=== PATIENT | female | born 2000 | race Caucasian/White ===

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

== ENCOUNTER 2019-08-29 00:57 | Emergency (ER) | payer OTHER ==
[~2019-08-29] VITALS: Ht 154.9 cm; Wt 49.0 kg
[2019-08-29] MEDS ORDERED: ZITHROMAX500 MG PO (05:49)
[2019-08-29] MEDS ORDERED: ZYNCOF 20-400120 ML PO (05:49)
== END 2019-08-29 05:55 | disposition home or self-care (01) ==
LOC: ER 00:57
DX: R50.9 Fever, unspecified (principal); B96.0 Mycoplasma pneumoniae [M. pneumoniae] as the cause of diseases classified elsewhere

== ENCOUNTER 2019-09-04 18:55 | Emergency (ER) | payer OTHER ==
[~2019-09-04] VITALS: Ht 154.9 cm; Wt 54.0 kg
[~2019-09-04 18:55] MED LIST changes: +ZITHROMAX500 MG PO; +ZYNCOF 20-400120 ML PO
== END 2019-09-04 21:32 | disposition home or self-care (01) ==
LOC: ER 18:55
DX: O20.0 Threatened abortion (principal)

== ENCOUNTER 2019-12-16 18:36 | Emergency (ER) | payer OTHER ==
[~2019-12-16] VITALS: Ht 154.9 cm; Wt 55.8 kg
[2019-12-16] MEDS ORDERED: LEVOTHYROXINE25 MCG PO (18:41)
== END 2019-12-16 23:31 | disposition home or self-care (01) ==
LOC: ER 18:36
DX: N39.0 Urinary tract infection, site not specified (principal)

== ENCOUNTER 2019-12-26 00:57 | Emergency (ER) | payer OTHER ==
[~2019-12-26] VITALS: Ht 154.9 cm; Wt 59.0 kg
[~2019-12-26 00:57] MED LIST changes: +LEVOTHYROXINE25 MCG PO
== END 2019-12-26 04:55 | disposition home or self-care (01) ==
LOC: ER 00:57
DX: O26.892 Other specified pregnancy related conditions, second trimester (principal); R10.2 Pelvic and perineal pain; Z3A.16 16 weeks gestation of pregnancy

== ENCOUNTER 2020-01-05 01:04 | Emergency (ER) | payer OTHER ==
[~2020-01-05] VITALS: Ht 154.9 cm; Wt 58.1 kg
== END 2020-01-05 07:23 | disposition home or self-care (01) ==
LOC: ER 01:04
DX: O26.892 Other specified pregnancy related conditions, second trimester (principal); R10.2 Pelvic and perineal pain; Z34.02 Encounter for supervision of normal first pregnancy, second trimester

== ENCOUNTER 2020-01-10 23:18 | Emergency (ER) | payer OTHER ==
[~2020-01-10] VITALS: Ht 154.9 cm; Wt 58.5 kg
== END 2020-01-11 06:24 | disposition home or self-care (01) ==
LOC: ER 23:18
DX: O26.852 Spotting complicating pregnancy, second trimester (principal); Z3A.18 18 weeks gestation of pregnancy

== ENCOUNTER → 2020-01-19 | Emergency (ER) | payer OTHER ==
[~2020-01-19] VITALS: Ht 157.5 cm; Wt 59.9 kg
[~2020-01-19] MED LIST changes: +PRENATABS RX T1 EACH
== END | disposition home or self-care (01) ==
LOC: ER 03:33
DX: O26.892 Other specified pregnancy related conditions, second trimester (principal); R10.2 Pelvic and perineal pain; Z34.02 Encounter for supervision of normal first pregnancy, second trimester

== ENCOUNTER 2020-02-10 23:51 | Outpatient (CLI) | payer OTHER | END 2020-02-11 12:05 | disposition home or self-care (01) | LOC: OBS/DEL 23:51 | PROVIDERS: ATTEND Specialist | DX: O26.892 Other specified pregnancy related conditions, second trimester (principal); R10.2 Pelvic and perineal pain; K59.09 Other constipation ==

== ENCOUNTER 2020-03-07 00:19 | Inpatient (IN) | payer OTHER ==
[~2020-03-07] VITALS: Ht 154.9 cm; Wt 62.6 kg
== END 2020-04-15 14:42 | disposition home or self-care (01) | DRG 832 ==
LOC: OBS/DEL 00:19 → SURG-SUITE 02:48 → LDR 02:48 → SURG-SUITE 03-08 11:53 → OB/GYN 03-10 11:24
PROVIDERS: ADMIT Specialist; ATTEND Specialist
PROC: 4A1HXFZ Monitoring of Products of Conception, Cardiac Rhythm, External Approach (ICD-10-PCS; principal; 2020-03-07)
PROC: BY4CZZZ Ultrasonography of Second Trimester, Single Fetus (ICD-10-PCS; 2020-03-07)
PROC: BT43ZZZ Ultrasonography of Bilateral Kidneys (ICD-10-PCS; 2020-03-07)
PROC: BY4CZZZ Ultrasonography of Second Trimester, Single Fetus (ICD-10-PCS; 2020-03-07)
DX: O60.02 Preterm labor without delivery, second trimester (principal); O26.872 Cervical shortening, second trimester; Z3A.26 26 weeks gestation of pregnancy; Z20.828 Contact with and (suspected) exposure to other viral communicable diseases
CPT/HCPCS: 240

== ENCOUNTER → 2020-05-09 | Outpatient (CLI) | payer OTHER | END | disposition home or self-care (01) | LOC: PRENATAL 15:00 | PROVIDERS: ATTEND Obstetrics & Gynecology Maternal & Fetal Medicine | DX: O26.843 Uterine size-date discrepancy, third trimester (principal); O36.8131 Decreased fetal movements, third trimester, fetus 1; Z36.89 Encounter for other specified antenatal screening; Z3A.34 34 weeks gestation of pregnancy ==

== ENCOUNTER 2020-05-30 14:58 | Inpatient (IN) | payer OTHER ==
[~2020-05-30] VITALS: Ht 154.9 cm; Wt 67.6 kg
== END 2020-06-01 14:00 | disposition home or self-care (01) | DRG 807 ==
LOC: LDR 14:58 → OB/GYN 14:58
PROVIDERS: ADMIT Specialist; ATTEND Specialist
PROC: 10E0XZZ Delivery of Products of Conception, External Approach (ICD-10-PCS; principal; 2020-05-30)
PROC: 4A1HXFZ Monitoring of Products of Conception, Cardiac Rhythm, External Approach (ICD-10-PCS; 2020-05-30)
DX: O60.14X0 Preterm labor third trimester with preterm delivery third trimester, not applicable or unspecified (principal); Z37.0 Single live birth; O99.824 Streptococcus B carrier state complicating childbirth; Z3A.38 38 weeks gestation of pregnancy

== ENCOUNTER 2021-05-08 19:31 | Emergency (ER) | payer OTHER ==
[~2021-05-08] VITALS: Ht 154.9 cm; Wt 68.9 kg
[2021-05-08] MEDS ORDERED: PEPCID AC20 MG PO (21:59)
== END 2021-05-08 22:03 | disposition home or self-care (01) ==
LOC: ER 19:31
DX: K29.60 Other gastritis without bleeding (principal)

== ENCOUNTER 2022-05-09 01:44 | Emergency (ER) | payer OTHER ==
[~2022-05-09] VITALS: Ht 154.9 cm; Wt 69.4 kg
[~2022-05-09 01:44] MED LIST changes: +PEPCID AC20 MG PO
[2022-05-09] MEDS ORDERED: KETO10TA2 PO (04:58)
[2022-05-09] MEDS ORDERED: CEPHALEXIN500 MG PO (04:58)
== END 2022-05-09 05:05 ==
LOC: ER 01:44
DX: N93.8 Other specified abnormal uterine and vaginal bleeding (principal)

== ENCOUNTER 2022-08-23 21:47 | Emergency (ER) | payer OTHER ==
[~2022-08-23] VITALS: Ht 154.9 cm; Wt 59.0 kg
[~2022-08-23 21:47] MED LIST changes: +CEPHALEXIN500 MG PO; +KETO10TA2 PO
== END 2022-08-24 00:50 | disposition home or self-care (01) ==
LOC: ER 21:47 → EMR PED 21:48 → ER 21:48
DX: A08.4 Viral intestinal infection, unspecified (principal)

== ENCOUNTER 2023-03-30 17:51 | Emergency (ER) | payer OTHER ==
[~2023-03-30] VITALS: Ht 154.9 cm; Wt 64.9 kg
[2023-03-30 18:30] LABS: HEMATOCRIT 40.5 % (36.0-45.00); HEMOGLOBIN 13.8 g/dL (12.0-15.00); MEAN CELL VOLUME 88.6 fL (80.00-100.00); MEAN CORPUSCULAR HEMOGLOBIN 30.1 pg (27.00-32.0); PLATELET COUNT 206 K/uL (150-450); RED BLOOD COUNT 4.57 M/uL (4.00-6.00); RED CELL DISTRIBUTION WIDTH 13.6 % (11.5-14.5)
[2023-03-30] MEDS ORDERED: MEDROLPACK PO (19:24)
[2023-03-30] MEDS ORDERED: ALLEGRA ALLERG180 MG PO (19:24)
== END 2023-03-30 19:37 | disposition home or self-care (01) ==
LOC: ER 17:51
PROVIDERS: General Practice
DX: R21 Rash and other nonspecific skin eruption (principal); Z20.822 Contact with and (suspected) exposure to COVID-19

== ENCOUNTER → 2023-04-29 | Emergency (ER) | payer OTHER ==
[~2023-04-29] VITALS: Ht 154.9 cm; Wt 72.6 kg
[~2023-04-29] MED LIST changes: +ALLEGRA ALLERG180 MG PO; +MEDROLPACK PO
== END | disposition home or self-care (01) ==
LOC: ER 17:11
DX: J10.1 Influenza due to other identified influenza virus with other respiratory manifestations (principal); Z20.822 Contact with and (suspected) exposure to COVID-19; Z91.013 Allergy to seafood; Z91.018 Allergy to other foods

== ENCOUNTER 2023-09-09 23:07 | Emergency (ER) | payer OTHER ==
[~2023-09-09] VITALS: Ht 154.9 cm; Wt 67.6 kg
== END 2023-09-10 | disposition left against medical advice (07) ==
LOC: ER 23:07
DX: Z53.21 Procedure and treatment not carried out due to patient leaving prior to being seen by health care provider (principal)

== ENCOUNTER 2024-01-11 17:10 | Emergency (ER) | payer OTHER ==
[~2024-01-11] VITALS: Ht 154.9 cm; Wt 69.4 kg
[~2024-01-11 17:10] MED LIST changes: +MACRODANTIN100 M1 PO; +PRENATA CHEWAB1 EACH PO
[2024-01-11 18:33] LABS: HEMATOCRIT 34.7 % (36.0-45.00); HEMOGLOBIN 12.3 g/dL (12.0-15.00); MEAN CELL VOLUME 89.2 fL (80.00-100.00); MEAN CORPUSCULAR HEMOGLOBIN 31.6 pg (27.00-32.0); MEAN CORPUSCULAR HGB CONC 35.5 g/dl (32.0-36.0); PLATELET COUNT 175 K/uL (150-450); RED BLOOD COUNT 3.89 M/uL (4.00-6.00); RED CELL DISTRIBUTION WIDTH 14.6 % (11.5-14.5)
[2024-01-11 19:16] LABS: CALCIUM 8.5 mg/dL (8.5-10.1); CREATININE SERUM 0.78 mg/dL (0.55-1.02); GFR 89.99; POTASSIUM 3.55 mEq/L (3.5-5.1)
[2024-01-11 20:15] LABS: PH,URINE 5.5 (5.0-8.0); URINE APPEARANCE Cloudy; URINE BILIRRUBIN Negative (NEGATIVE); URINE BLOOD Negative; URINE COLOR Yellow; URINE GLUCOSE Negative (NEGATIVE); URINE LEUKOCYTE Moderate; URINE NITRATE Negative; URINE PROTEIN Negative (NEGATIVE)
[2024-01-11 20:18] LABS: URINE BACTERIA 3777.3 uL (0.0-1933); URINE EPITHELIAL CELLS 49.6 uL (0.0-38.8); URINE RBC 13.5 uL (0.0-20.8); URINE WBC 128.4 uL (0.0-23.2)
== END 2024-01-11 21:56 | disposition home or self-care (01) ==
LOC: ER 17:11
PROVIDERS: General Practice
DX: N39.0 Urinary tract infection, site not specified (principal); R10.2 Pelvic and perineal pain; Z91.013 Allergy to seafood; Z91.018 Allergy to other foods

== ENCOUNTER 2024-01-17 09:46 | Emergency (ER) | payer OTHER ==
[~2024-01-17] VITALS: Ht 154.9 cm; Wt 69.4 kg
[2024-01-17 10:17] LABS: HEMATOCRIT 35.4 % (36.0-45.00); HEMOGLOBIN 12.2 g/dL (12.0-15.00); MEAN CELL VOLUME 90.4 fL (80.00-100.00); MEAN CORPUSCULAR HEMOGLOBIN 31.2 pg (27.00-32.0); MEAN CORPUSCULAR HGB CONC 34.5 g/dl (32.0-36.0); PLATELET COUNT 166 K/uL (150-450); RED BLOOD COUNT 3.92 M/uL (4.00-6.00); RED CELL DISTRIBUTION WIDTH 14.7 % (11.5-14.5)
[2024-01-17 10:45] LABS: INR 0.98; PARTIAL THROMBOPLASTIN TIME 27.6 SECONDS (22.0-34.0); PROTHROMBIN TIME 10.3 SECONDS (9.0-11.5)
[2024-01-17 11:11] LABS: CALCIUM 8.9 mg/dL (8.5-10.1); CREATININE SERUM 0.5 mg/dL (0.55-1.02); GFR 150.33; POTASSIUM 3.81 mEq/L (3.5-5.1)
[2024-01-17 13:48] LABS: URINE APPEARANCE Clear; URINE BILIRRUBIN Negative (NEGATIVE); URINE BLOOD Negative; URINE COLOR Yellow; URINE GLUCOSE Negative (NEGATIVE); URINE LEUKOCYTE Moderate; URINE NITRATE Negative; URINE PROTEIN Negative (NEGATIVE); URINE UROBILINOGEN 0.2 E.U./dl
[2024-01-17 13:52] LABS: URINE RBC 32.3 uL (0.0-20.8); URINE WBC 17.9 uL (0.0-23.2)
== END 2024-01-17 14:21 | disposition home or self-care (01) ==
LOC: ER 09:48
PROVIDERS: General Practice
DX: O20.9 Hemorrhage in early pregnancy, unspecified (principal); Z3A.15 15 weeks gestation of pregnancy; Z91.018 Allergy to other foods; Z91.013 Allergy to seafood; R10.9 Unspecified abdominal pain

== ENCOUNTER 2024-02-06 19:11 | Emergency (ER) | payer OTHER ==
[~2024-02-06] VITALS: Ht 162.6 cm; Wt 68.0 kg
[2024-02-06 19:43] LABS: HEMATOCRIT 35.8 % (36.0-45.00); HEMOGLOBIN 12.5 g/dL (12.0-15.00); MEAN CELL VOLUME 90.6 fL (80.00-100.00); MEAN CORPUSCULAR HEMOGLOBIN 31.6 pg (27.00-32.0); MEAN CORPUSCULAR HGB CONC 34.8 g/dl (32.0-36.0); PLATELET COUNT 194 K/uL (150-450); RED BLOOD COUNT 3.95 M/uL (4.00-6.00); RED CELL DISTRIBUTION WIDTH 13.7 % (11.5-14.5)
[2024-02-06 20:21] LABS: INR 0.99; PARTIAL THROMBOPLASTIN TIME 28.6 SECONDS (22.0-34.0); PROTHROMBIN TIME 10.8 SECONDS (9.0-11.5)
[2024-02-06 20:43] LABS: CALCIUM 8.5 mg/dL (8.5-10.1); CREATININE SERUM 0.53 mg/dL (0.55-1.02); GFR 140.55; POTASSIUM 3.48 mEq/L (3.5-5.1)
[2024-02-06 21:07] LABS: URINE APPEARANCE Clear; URINE BILIRRUBIN Negative (NEGATIVE); URINE BLOOD Negative; URINE COLOR Yellow; URINE GLUCOSE Negative (NEGATIVE); URINE KETONE Negative (NEGATIVE); URINE LEUKOCYTE Moderate; URINE NITRATE Negative; URINE PROTEIN Negative (NEGATIVE); URINE UROBILINOGEN 0.2 E.U./dl
[2024-02-06 21:11] LABS: URINE BACTERIA 1442.6 uL (0.0-1933); URINE EPITHELIAL CELLS 22.5 uL (0.0-38.8); URINE RBC 8.3 uL (0.0-20.8); URINE WBC 172.6 uL (0.0-23.2)
== END 2024-02-06 22:36 | disposition home or self-care (01) ==
LOC: ER 19:12
PROVIDERS: General Practice
DX: O26.899 Other specified pregnancy related conditions, unspecified trimester (principal); Z3A.17 17 weeks gestation of pregnancy; Z91.013 Allergy to seafood; Z91.018 Allergy to other foods; R10.2 Pelvic and perineal pain

== ENCOUNTER 2024-03-31 22:34 | Inpatient (IN) | payer OTHER ==
[~2024-03-31] VITALS: Ht 154.9 cm; Wt 69.4 kg
[2024-03-31 22:02] VITALS: BP 100/66
[2024-03-31 23:02] LABS: PH,URINE 5.5 (5.0-8.0); URINE APPEARANCE Cloudy; URINE BILIRRUBIN Negative (NEGATIVE); URINE BLOOD Negative; URINE COLOR Yellow; URINE GLUCOSE Negative (NEGATIVE); URINE KETONE Trace (NEGATIVE); URINE LEUKOCYTE Moderate; URINE NITRATE Negative; URINE PROTEIN Negative (NEGATIVE); URINE UROBILINOGEN 0.2 E.U./dl
[2024-03-31 23:03] LABS: URINE BACTERIA 4223.3 uL (0.0-1933); URINE EPITHELIAL CELLS 46.5 uL (0.0-38.8); URINE RBC 12.5 uL (0.0-20.8); URINE WBC 206.6 uL (0.0-23.2)
[2024-03-31 23:13] LABS: MEAN CELL VOLUME 93.9 fL (80.00-100.00); MEAN CORPUSCULAR HGB CONC 34.9 g/dl (32.0-36.0); PLATELET COUNT 191 K/uL (150-450); RED BLOOD COUNT 3.62 M/uL (4.00-6.00); RED CELL DISTRIBUTION WIDTH 13.3 % (11.5-14.5)
[2024-03-31 23:14] LABS: URINE CAST 0.45 uL (0.0-1.40)
[2024-03-31 23:15] LABS: HEMOGLOBIN 11.8 g/dL (12.0-15.00); MEAN CORPUSCULAR HEMOGLOBIN 32.5 pg (27.00-32.0)
[2024-03-31 23:26] LABS: BILIRUBIN TOTAL 0.29 mg/dL (0.3-1.2); CALCIUM 8.9 mg/dL (8.5-10.1); GFR 169.76; GLOBULINA 3.1 G/DL (2.4-3.5); POTASSIUM 3.75 mEq/L (3.5-5.1); TOTAL PROTEIN 6.1 gm/dL (6.4-8.2)
[2024-03-31 23:28] LABS: CREATININE SERUM 0.45 mg/dL (0.55-1.02)
[2024-04-01] VITALS (9 sets, daily range): BP systolic 98–110; BP diastolic 61–72
[2024-04-01] MEDS ORDERED: MORPHINE SULFATE 4 MG/ML VIAL IV PRN (02:15)
[2024-04-01] MEDS ORDERED: MORPHINE SULFATE 4 MG/ML CARTRIDGE IV PRN (07:30)
[2024-04-01] MEDS ORDERED: MAGNESIUM SULFATE IN WATER 500 ML IV SCH (13:00)
[2024-04-01] MEDS ORDERED: MAGNESIUM SULFATE IN WATER 100 ML IV SCH (13:00)
[2024-04-01] MEDS ORDERED: RINGERS SOLUTION,LACTATED 1,000 ML IV SCH (13:00)
[2024-04-01] MEDS ORDERED: BETAMETHASONE ACETATE,SOD PHOS 30 MG/5 ML ML IM SCH (13:30)
[2024-04-01] MEDS ORDERED: LEVOTHYROXINE SODIUM 25 MCG TABLET PO NR (16:00)
[2024-04-02 03:08] VITALS: BP 100/63
[2024-04-02] MEDS ORDERED: LEVOTHYROXINE SODIUM 25 MCG TABLET PO SCH (06:00)
[2024-04-02 07:06] VITALS: BP 102/62; O2SAT 98
[2024-04-02] MEDS ORDERED: PNV,CALCIUM 72/IRON/FOLIC ACID 1 TAB TABLET PO SCH (09:00)
[2024-04-02 11:14] VITALS: BP 99/62
[2024-04-02 15:22] VITALS: BP 102/65
[2024-04-02 19:37] VITALS: BP 108/65
[2024-04-02 23:30] VITALS: BP 111/67
[2024-04-03 03:34] VITALS: BP 103/60
[2024-04-03 07:30] VITALS: BP 107/70
[2024-04-03] MEDS ORDERED: NIFEDIPINE 30 MG TAB.SA.OSM PO SCH (09:00)
[2024-04-03 10:28] VITALS: BP 106/64
[2024-04-03 10:56] VITALS: BP 104/64
[2024-04-03 15:29] VITALS: BP 102/61; BP 103/63
[2024-04-04 01:00] VITALS: BP 99/61
[2024-04-04] MEDS ORDERED: FAMOtidine 20 MG TABLET PO NR (10:00)
[2024-04-04 10:04] VITALS: BP 108/69
[2024-04-04 16:00] VITALS: BP 100/61
[2024-04-04] MEDS ORDERED: FAMOtidine 20 MG TABLET PO SCH (21:00)
[2024-04-05] VITALS: BP 99/66
[2024-04-05 07:51] VITALS: BP 98/62
[2024-04-05] MEDS ORDERED: ENOXAPARIN SODIUM 40 MG/0.4 ML SYRINGE SUBCUTANEO SCH (09:00)
[2024-04-05 17:54] VITALS: BP 98/55
[2024-04-06 00:40] VITALS: BP 95/57
[2024-04-06 08:05] VITALS: BP 95/60
== END 2024-04-06 13:11 | disposition home or self-care (01) | DRG 832 ==
LOC: OBS/DEL 22:34 → LDR 04-01 12:54 → OB/GYN 04-03 09:41
PROVIDERS: ADMIT Obstetrics & Gynecology; ATTEND Obstetrics & Gynecology
PROC: 4A1HXCZ Monitoring of Products of Conception, Cardiac Rate, External Approach (ICD-10-PCS; principal; 2024-04-01)
PROC: BU4CZZZ Ultrasonography of Uterus and Ovaries (ICD-10-PCS; 2024-04-01)
PROC: BY4CZZZ Ultrasonography of Second Trimester, Single Fetus (ICD-10-PCS; 2024-04-05)
PROC: BU4CZZZ Ultrasonography of Uterus and Ovaries (ICD-10-PCS; 2024-04-05)
DX: O60.02 Preterm labor without delivery, second trimester (principal); O26.872 Cervical shortening, second trimester; O26.842 Uterine size-date discrepancy, second trimester; O36.8120 Decreased fetal movements, second trimester, not applicable or unspecified; Z3A.26 26 weeks gestation of pregnancy; Z20.822 Contact with and (suspected) exposure to COVID-19

== ENCOUNTER 2024-05-29 22:41 | Inpatient (IN) | payer OTHER ==
[~2024-05-29] VITALS: Ht 154.9 cm; Wt 73.5 kg
[2024-05-29 21:29] VITALS: BP 116/72
[2024-05-29] MEDS ORDERED: RINGERS SOLUTION,LACTATED 1,000 ML IV SCH (22:45)
[2024-05-29 23:08] VITALS: BP 106/69
[2024-05-29 23:26] LABS: HEMATOCRIT 34.7 % (36.0-45.00); HEMOGLOBIN 12.1 g/dL (12.0-15.00); MEAN CELL VOLUME 95.5 fL (80.00-100.00); MEAN CORPUSCULAR HEMOGLOBIN 33.4 pg (27.00-32.0); MEAN CORPUSCULAR HGB CONC 34.9 g/dl (32.0-36.0); PLATELET COUNT 157 K/uL (150-450); RED BLOOD COUNT 3.63 M/uL (4.00-6.00)
[2024-05-29 23:40] LABS: INR 0.96; PARTIAL THROMBOPLASTIN TIME 25.9 SECONDS (22.0-34.0); PROTHROMBIN TIME 10.5 SECONDS (9.0-11.5)
[2024-05-30 02:20] VITALS: BP 106/69
[2024-05-30] MEDS ORDERED: MAGNESIUM SULFATE IN WATER 500 ML IV SCH (02:30)
[2024-05-30] MEDS ORDERED: MAGNESIUM SULFATE IN WATER 100 ML IV ONE (02:30)
[2024-05-30] MEDS ORDERED: BETAMETHASONE ACETATE,SOD PHOS 30 MG/5 ML ML IM SCH (02:30)
[2024-05-30 03:12] VITALS: BP 105/66
[2024-05-30 06:07] VITALS: BP 100/59; O2SAT 98
[2024-05-30] MEDS ORDERED: NIFEDIPINE 30 MG TAB.SA.OSM PO SCH (09:00)
[2024-05-30 15:33] VITALS: BP 103/63; O2SAT 99
[2024-05-30 19:21] VITALS: BP 103/61
[2024-05-30 23:26] VITALS: BP 121/70
[2024-05-31] MEDS ORDERED: RINGERS SOLUTION,LACTATED 1,000 ML IV SCH (01:00)
[2024-05-31] MEDS ORDERED: MAGNESIUM SULFATE IN WATER 500 ML IV SCH (02:45)
[2024-05-31] MEDS ORDERED: ACETAMINOPHEN 500 MG GEL..CAP PO ONE (02:45)
[2024-05-31] MEDS ORDERED: BETAMETHASONE ACETATE,SOD PHOS 30 MG/5 ML ML IM ONE (02:45)
[2024-05-31 04:06] VITALS: BP 101/61
[2024-05-31 06:13] VITALS: BP 102/61; O2SAT 98
[2024-05-31 11:40] VITALS: BP 118/67; O2SAT 99
== END 2024-05-31 11:30 | disposition home or self-care (01) | DRG 833 ==
LOC: OBS/DEL 22:41 → LDR 05-30 02:20 → OBS/DEL 05-31 11:06 → LDR 05-31 11:30
PROVIDERS: ADMIT Obstetrics & Gynecology; ATTEND Obstetrics & Gynecology
PROC: 4A1HXCZ Monitoring of Products of Conception, Cardiac Rate, External Approach (ICD-10-PCS; principal; 2024-05-30)
DX: O47.03 False labor before 37 completed weeks of gestation, third trimester (principal); Z3A.34 34 weeks gestation of pregnancy; Z20.822 Contact with and (suspected) exposure to COVID-19

== ENCOUNTER 2024-06-29 06:16 | Outpatient (CLI) | payer OTHER ==
[~2024-06-29] VITALS: Ht 154.9 cm; Wt 69.4 kg
[2024-06-29 05:03] VITALS: BP 112/76
[2024-06-29 07:11] VITALS: BP 111/67
[2024-06-29 10:48] VITALS: BP 111/67
== END 2024-06-29 10:52 | disposition home or self-care (01) ==
LOC: OBS/DEL 06:16
PROVIDERS: ATTEND Obstetrics & Gynecology
DX: O47.1 False labor at or after 37 completed weeks of gestation (principal); Z3A.38 38 weeks gestation of pregnancy

== ENCOUNTER 2024-07-08 11:42 | Inpatient (IN) | payer OTHER ==
[2024-07-08] VITALS (7 sets, daily range): BP systolic 106–129; BP diastolic 67–85
[~2024-07-08] VITALS: Ht 154.9 cm; Wt 75.7 kg
[2024-07-08] MEDS ORDERED: AMPICILLIN SODIUM 2,000 MG VIAL ONE (12:29)
[2024-07-08] MEDS ORDERED: AMPICILLIN SODIUM 2,000 MG VIAL IV STA (12:51)
[2024-07-08 12:54] LABS: HEMATOCRIT 36.7 % (36.0-45.00); HEMOGLOBIN 12.8 g/dL (12.0-15.00); MEAN CELL VOLUME 92.4 fL (80.00-100.00); MEAN CORPUSCULAR HEMOGLOBIN 32.1 pg (27.00-32.0); MEAN CORPUSCULAR HGB CONC 34.8 g/dl (32.0-36.0); PLATELET COUNT 176 K/uL (150-450); RED BLOOD COUNT 3.97 M/uL (4.00-6.00); RED CELL DISTRIBUTION WIDTH 13.6 % (11.5-14.5)
[2024-07-08] MEDS ORDERED: RINGERS SOLUTION,LACTATED 10,000 ML IV SCH (13:00)
[2024-07-08 13:06] LABS: INR 0.94; PARTIAL THROMBOPLASTIN TIME 25.5 SECONDS (22.0-34.0); PROTHROMBIN TIME 10.3 SECONDS (9.0-11.5)
[2024-07-08] MEDS ORDERED: OXYTOCIN 20 UNITS/500ML RL PIGGYBAG IV ONE ×2 (13:08→13:45)
[2024-07-08 13:16] LABS: ALBUMIN 2.8 gm/dL (3.4-5.0); BILIRUBIN TOTAL 0.55 mg/dL (0.3-1.2); CALCIUM 9.2 mg/dL (8.5-10.1); CREATININE SERUM 0.52 mg/dL (0.55-1.02); GFR 142.54; GLOBULINA 3.4 G/DL (2.4-3.5); POTASSIUM 3.73 mEq/L (3.5-5.1); TOTAL PROTEIN 6.2 gm/dL (6.4-8.2)
[2024-07-08] MEDS ORDERED: ERYTHROMYCIN BASE OPHT 1GM EACH TUBE OP ONE (13:46)
[2024-07-08] MEDS ORDERED: OXYTOCIN 20 UNITS/1000ML RL PIGGYBAG IV ONE (13:47)
[2024-07-08] MEDS ORDERED: CHLORHEXIDINE GLUCONATE 120 ML BOTTLE TOP ONE (13:47)
[2024-07-08] MEDS ORDERED: LIDOCAINE HCL 1% 10ML VIAL ONE (13:47)
[2024-07-08] MEDS ORDERED: IBUprofen 400 MG TABLET PO PRN (14:30)
[2024-07-08] MEDS ORDERED: OXYTOCIN 1,000 ML IV ONE (14:30)
[2024-07-08] MEDS ORDERED: CHLORHEXIDINE GLUCONATE 120 ML BOTTLE TOP SCH (14:30)
[2024-07-08] MEDS ORDERED: AMPICILLIN SODIUM 1,000 MG VIAL IV SCH (16:00)
[2024-07-08] MEDS ORDERED: METHYLERGONOVINE MALEATE 0.2 MG/ML AMPUL ONE ×2 (16:42→22:07)
[2024-07-08] MEDS ORDERED: CEFAZOLIN SODIUM 1,000 MG VIAL ONE (16:42)
[2024-07-08] MEDS ORDERED: CEFAZOLIN SODIUM 1,000 MG VIAL IV NR (16:45)
[2024-07-08] MEDS ORDERED: METHYLERGONOVINE MALEATE 0.2 MG/ML AMPUL IM SCH (17:00)
[2024-07-08] MEDS ORDERED: DOCUSATE SODIUM 100MG CAP PO SCH (17:00)
[2024-07-09 00:25] VITALS: BP 106/65
[2024-07-09 07:40] LABS: HEMATOCRIT 28.4 % (36.0-45.00); MEAN CELL VOLUME 94.1 fL (80.00-100.00); MEAN CORPUSCULAR HEMOGLOBIN 32.4 pg (27.00-32.0); MEAN CORPUSCULAR HGB CONC 34.4 g/dl (32.0-36.0); PLATELET COUNT 149 K/uL (150-450); RED BLOOD COUNT 3.02 M/uL (4.00-6.00); RED CELL DISTRIBUTION WIDTH 13.7 % (11.5-14.5)
[2024-07-09 07:53] LABS: HEMOGLOBIN 9.8 g/dL (12.0-15.00)
[2024-07-09 10:56] VITALS: BP 116/76
[2024-07-09 16:00] VITALS: BP 119/79
[2024-07-09 20:00] VITALS: BP 112/70
[2024-07-10] VITALS: BP 100/63
[2024-07-10 09:00] VITALS: BP 104/70
== END 2024-07-10 14:13 | disposition home or self-care (01) | DRG 807 ==
LOC: OB/GYN 11:42 → LDR 11:42 → OB/GYN 14:39
PROVIDERS: Obstetrics & Gynecology Gynecology; ADMIT Obstetrics & Gynecology; ATTEND Obstetrics & Gynecology
PROC: 10E0XZZ Delivery of Products of Conception, External Approach (ICD-10-PCS; principal; 2024-07-08)
PROC: 0HQ9XZZ Repair Perineum Skin, External Approach (ICD-10-PCS; 2024-07-08)
PROC: 4A1HXCZ Monitoring of Products of Conception, Cardiac Rate, External Approach (ICD-10-PCS; 2024-07-08)
DX: O70.0 First degree perineal laceration during delivery (principal); Z37.0 Single live birth; Z3A.39 39 weeks gestation of pregnancy

== ENCOUNTER 2025-02-20 08:52 | Emergency (ER) | payer OTHER ==
[~2025-02-20] VITALS: Ht 154.9 cm; Wt 67.1 kg
[2025-02-20 10:32] LABS: BASO % 0.3 % (0.1-1.2); EOS # 0.20 (0.04-0.54); EOS % 2.3 % (0.7-7.0); LYMPH # 2.43 (1.18-3.74); LYMPH % 28.1 % (19.3-53.1); MEAN PLATELET VOLUME 11.60 fl (9.4-12.4); MONO # 0.57 (0.24-0.82); MONO % 6.6 % (4.7-12.5); NEUT # 5.41 (1.56-6.13); NEUT % 62.6 % (34.0-71.1); RED CELL DISTRIBUTION WIDTH 13.8 % (11.6-14.4)
[2025-02-20 11:20] LABS: URINE APPEARANCE Clear; URINE BILIRRUBIN Negative (NEGATIVE); URINE BLOOD Negative; URINE COLOR Yellow; URINE GLUCOSE Negative (NEGATIVE); URINE KETONE Negative (NEGATIVE); URINE LEUKOCYTE Moderate; URINE NITRATE Negative; URINE PROTEIN Negative (NEGATIVE); URINE UROBILINOGEN 0.2 E.U./dl
[2025-02-20 11:21] LABS: URINE BACTERIA 313.2 uL (0.0-1933); URINE EPITHELIAL CELLS 11.8 uL (0.0-38.8); URINE RBC 9.9 uL (0.0-20.8); URINE WBC 47.1 uL (0.0-23.2)
[2025-02-20 11:41] LABS: URINE CAST 0.00 uL (0.0-1.40)
== END 2025-02-20 11:40 | disposition home or self-care (01) ==
LOC: ER 08:52
PROVIDERS: Emergency Medicine
DX: O20.9 Hemorrhage in early pregnancy, unspecified (principal); O99.281 Endocrine, nutritional and metabolic diseases complicating pregnancy, first trimester; Z3A.01 Less than 8 weeks gestation of pregnancy; Z91.013 Allergy to seafood; Z91.018 Allergy to other foods

== ENCOUNTER → 2025-04-28 07:36 | Outpatient (CLI) | payer OTHER | END | disposition home or self-care (01) | LOC: PRENATAL 07:36 | PROVIDERS: ATTEND Obstetrics & Gynecology Maternal & Fetal Medicine | DX: O36.80X0 Pregnancy with inconclusive fetal viability, not applicable or unspecified (principal); Z36.82 Encounter for antenatal screening for nuchal translucency; Z14.8 Genetic carrier of other disease; Z3A.14 14 weeks gestation of pregnancy ==

== ENCOUNTER 2025-06-07 15:53 | Outpatient (CLI) | payer OTHER | END 2025-06-07 15:54 | disposition home or self-care (01) | LOC: PRENATAL 15:53 | PROVIDERS: ATTEND Obstetrics & Gynecology Maternal & Fetal Medicine | DX: O44.02 Complete placenta previa NOS or without hemorrhage, second trimester (principal); O99.282 Endocrine, nutritional and metabolic diseases complicating pregnancy, second trimester; Z3A.21 21 weeks gestation of pregnancy ==